=== PATIENT | male | born 1975 ===

== ENCOUNTER → 2018-04-08 | Outpatient (REF) ==
[2018-04-08 13:53] LABS: HIV 1/2 Antibodies Non-Reactive; HIV-1p24 Antigen Non-Reactive
[2018-04-09 00:09] LABS: HEPATITIS B SURFACE ANTIBODY <2.0 (()); HEPATITIS B SURFACE ANTIGEN Negative (Negative); HEPATITIS C VIRUS ANTIBODY Negative (Negative)
== END ==
LOC: ZMSC 13:07
PROVIDERS: Orthopaedic Surgery
DX: Z01.89 Encounter for other specified special examinations (principal)